=== PATIENT | female | born 1950 | race Caucasian/White ===

== ENCOUNTER 2016-03-27 16:33 | Emergency (ER) | payer MEDICARE, OTHER ==
[~2016-03-27] VITALS: Ht 162.6 cm; Wt 60.8 kg
[~2016-03-27 16:33] MED LIST: ASPI-498 OR; BACL10TA PO; CLON2TAB PO; HYDR200T OR; LOSA25TA8; METH2.5T3 PO; SERT-274 PO; SIMV5TAB50; [UNRECOGNIZED DRUG - CODE]
[2016-03-27 18:38] VITALS: BP 126/63
== END 2016-03-27 19:50 | disposition left against medical advice (07) ==
LOC: EDUNIT# 16:33 → ER 16:36
DX: T38.3X1A Poisoning by insulin and oral hypoglycemic [antidiabetic] drugs, accidental (unintentional), initial encounter (principal); J45.909 Unspecified asthma, uncomplicated; I10 Essential (primary) hypertension; Z79.4 Long term (current) use of insulin; Z79.899 Other long term (current) drug therapy; Y92.89 Other specified places as the place of occurrence of the external cause; Z88.8 Allergy status to other drugs, medicaments and biological substances; Z88.0 Allergy status to penicillin
CPT/HCPCS: 82962

== ENCOUNTER 2017-07-03 12:31 | Inpatient (IN) | payer OTHER ==
[~2017-07-03] VITALS: Ht 154.9 cm; Wt 72.0 kg
[2017-07-03] MEDS ORDERED: SODIUM CHLORIDE 0.9% 1,000 ML IV ONE (12:44)
[2017-07-03 14:01] LABS: Basophils # (auto) 0 uL; Basophils % (auto) 0.4 % (0.0-2.0); Eosinophils # (auto) 0 uL; Lymphocytes # (auto) 0.2 uL; Lymphocytes % (auto) 2.4 % (10.0-50.0)
[2017-07-03 14:03] LABS: Hematocrit 37.1 % (36.0-46.0); Hemoglobin 11.6 g/dL (12.2-16.2); Mean Corpuscular Hemoglobin 31.9 pg (28.0-32.0); Mean Corpuscular Hgb Conc. 31.2 g/dL (32.0-36.0); Mean Corpuscular Volume 102.1 fL (80.0-100.0); Monocytes # (auto) 0.4 uL; Monocytes % (auto) 3.7 % (0.0-12.0); Neutrophils # (auto) 9.4 uL; Neutrophils % (auto) 93.5 % (37.0-80.0); Platelet Count (auto) 169 10^3/uL (140-450); Red Blood Cells 3.63 10^6/uL (4.0-5.20); Red Cell Distribution Width 16.8 % (11.8-14.3)
[2017-07-03 14:11] LABS: Albumin 3.5 g/dL (3.4-5.0); Anion Gap 19 (5-15); Calcium 8.7 mg/dL (8.5-10.1); Carbon Dioxide 13 mmol/L (21-32); Chloride 102 mmol/L (98-107); INR 0.96 (0.9-1.15); Magnesium 2.3 mg/dL (1.6-2.6); Partial Thromboplastin Time 24.7 sec (23.78-33.04); Potassium 5.4 mmol/L (3.5-5.1); Prothrombin Time 10.3 sec (9.27-12.13); Sodium 134 mmol/L (136-145)
[2017-07-03 14:13] LABS: Alanine Aminotransferase 20 U/L (13-56); Aspartate Aminotransferase 18 U/L (15-37); BUN/Creatinine Ratio 28.3; Blood Urea Nitrogen 41 mg/dL (7-18); GFR African American 46 mL/min; GFR Non-African American 38 mL/min
[2017-07-03 14:23] LABS: Alkaline Phosphatase 93 U/L (45-117); Bilirubin, Total 1.4 mg/dL (0.2-1.0); Total Protein 6.7 g/dL (6.4-8.2)
[2017-07-03 14:32] LABS: Glucose 484 mg/dL (74-106)
[2017-07-03] MEDS: SODIUM CHLORIDE 0.9% 1,000 ML IV SCH ×2 (15:05→17:30)
[2017-07-03] MEDS ORDERED: SODIUM CHLORIDE 0.9% 1,000 ML IV SCH ×3 (15:05→21:05)
[2017-07-03] MEDS ORDERED: InsuLIN R (HUMAN) 100 UNITS in SODIUM CHL 0.9% 99 ML IV SCH (15:05)
[2017-07-03] MEDS ORDERED: PANTOPRAZOLE 40 MG/10 ML VIAL IV ONE (15:15)
[2017-07-03] MEDS ORDERED: ACETAMINOPHEN 500 MG TAB PO PRN (15:15)
[2017-07-03] MEDS ORDERED: LORazepam 0.5 MG TAB PO PRN (15:15)
[2017-07-03] MEDS ORDERED: NITROGLYCERIN 0.4 MG SL TAB SL PRN (15:15)
[2017-07-03] MEDS ORDERED: InsuLIN REG 1unit/0.01ml Soln (100units/ml) IV ONE (15:15)
[2017-07-03] MEDS ORDERED: PROMETHAZINE HCL 25 MG/ML 1ML IV PRN (15:15)
[2017-07-03] MEDS ORDERED: LACTULOSE 20Gm/30ML SOLN PO PRN (15:15)
[2017-07-03] MEDS ORDERED: HYDROcodone-ACET 5/325MG TAB PO PRN (15:15)
[2017-07-03] MEDS ORDERED: TEMAZEPAM 15 MG CAP PO PRN (15:15)
[2017-07-03] MEDS ORDERED: MORPHINE SULFATE 8mg/ml INJ SDV IV PRN ×2 (15:15)
[2017-07-03] MEDS ORDERED: DEXTROSE (50%) 50ML SYRG IV PRN ×2 (15:15→23:15)
[2017-07-03] MEDS ORDERED: cefTRIAXone 1GM/10ml IVPUSH 10 ML IV ONE (15:15)
[2017-07-03] MEDS: ACCU-CHEK COMFORT CURVE STRIP VI SCH ×5 (16:12→22:18)
[2017-07-03 16:17] LABS: CRP High Sensitivity 0.3 mg/dL (< 0.3)
[2017-07-03 18:43] LABS: Hematocrit 30.7 % (36.0-46.0); Hemoglobin 10.3 g/dL (12.2-16.2)
[2017-07-03] MEDS: metroNIDAZOLE 500MG/100ML 100 ML IV SCH (18:46)
[2017-07-03] MEDS ORDERED: ALBUMIN 5% 250 ML IV ONE (21:00)
[2017-07-03 22:44] LABS: Albumin 3.2 g/dL (3.4-5.0); BUN/Creatinine Ratio 25.9; Bilirubin, Total 1.1 mg/dL (0.2-1.0); Calcium 7.7 mg/dL (8.5-10.1); Potassium 4.2 mmol/L (3.5-5.1); Total Protein 5.8 g/dL (6.4-8.2)
[2017-07-03] MEDS ORDERED: SODIUM CHLORIDE 0.9% 500 ML IV ONE (23:15)
[2017-07-04] MEDS: InsuLIN REG 1unit/0.01ml Soln (100units/ml) SC SCH ×7 (00:08→20:26)
[2017-07-04] MEDS: ACCU-CHEK COMFORT CURVE STRIP VI SCH ×8 (00:08→23:56)
[2017-07-04] MEDS: metroNIDAZOLE 500MG/100ML 100 ML IV SCH ×5 (00:08→23:56)
[2017-07-04 01:07] LABS: Urine Bacteria NONE SEEN /hpf (None Seen); Urine Blood Negative /uL (Negative); Urine Hyaline Cast FEW /lpf (0 - 2); Urine Specific Gravity 1.015 (1.001-1.035); Urine WBC 5 /hpf (0 - 5)
[2017-07-04 01:18] LABS: Alcohol, Urine < 3.0 mg/dL (0-5); Amphetamine Screen, Urine NEGATIVE (NEGATIVE); Barbiturate Scree,Urine NEGATIVE (NEGATIVE); Benzodiazephine Screen, Urine NEGATIVE (NEGATIVE); Cannabinoid Screen, Urine NEGATIVE (NEGATIVE); Cocaine Screen, Urine NEGATIVE (NEGATIVE); Opiate Scree,Urine NEGATIVE (NEGATIVE); Phencyclidine Screen, Urine NEGATIVE (NEGATIVE)
[2017-07-04 01:27] LABS: Hematocrit 30.3 % (36.0-46.0)
[2017-07-04] MEDS ORDERED: DEXTROSE (50%) 50ML SYRG IV PRN ×2 (02:15→12:45)
[2017-07-04 04:59] VITALS: BP 96/52
[2017-07-04 05:00] VITALS: BP 96/52
[2017-07-04 06:55] LABS: Basophils # (auto) 0.1 uL; Basophils % (auto) 0.9 % (0.0-2.0); Eosinophils # (auto) 0 uL; Eosinophils % (auto) 0.2 % (0.0-7.0); Hematocrit 31.1 % (36.0-46.0); Hemoglobin 10.3 g/dL (12.2-16.2); Lymphocytes # (auto) 1.2 uL; Lymphocytes % (auto) 10.9 % (10.0-50.0); Mean Corpuscular Hemoglobin 32.1 pg (28.0-32.0); Mean Corpuscular Hgb Conc. 33.1 g/dL (32.0-36.0); Mean Corpuscular Volume 96.9 fL (80.0-100.0); Monocytes % (auto) 9.4 % (0.0-12.0); Neutrophils # (auto) 8.4 uL; Neutrophils % (auto) 78.6 % (37.0-80.0); Platelet Count (auto) 161 10^3/uL (140-450); Red Blood Cells 3.21 10^6/uL (4.0-5.20); Red Cell Distribution Width 15.7 % (11.8-14.3); White Blood Cell 10.6 10^3/uL (4.4-10.8)
[2017-07-04 07:17] LABS: BUN/Creatinine Ratio 28.4; Bilirubin, Total 1.1 mg/dL (0.2-1.0); Calcium 8.3 mg/dL (8.5-10.1); Potassium 4.7 mmol/L (3.5-5.1); Total Protein 5.8 g/dL (6.4-8.2)
[2017-07-04 09:00] VITALS: BP 99/51
[2017-07-04] MEDS ORDERED: cefTRIAXone 1GM/10ml IVPUSH 10 ML IV SCH (09:00)
[2017-07-04] MEDS: PANTOPRAZOLE 40 MG/10 ML VIAL IV SCH (10:12)
[2017-07-04] MEDS ORDERED: LEVOFLOXACIN 500MG 100 ML IV ONE (12:30)
[2017-07-04 12:38] VITALS: BP 104/95
[2017-07-04] MEDS: SODIUM CHLORIDE 0.9% 1,000 ML IV SCH ×2 (13:09→20:45)
[2017-07-04] MEDS ORDERED: guaiFENesin 200 MG/10 ML UD PO PRN (15:00)
[2017-07-04 17:00] VITALS: BP 100/49
[2017-07-04] MEDS ORDERED: ALBUTEROL SULF 2.5 MG/0.5ML(0.5%) NEB SOLN NEB PRN (20:00)
[2017-07-04] MEDS ORDERED: SODIUM CHLORIDE 0.9% 500 ML IV ONE (22:45)
[2017-07-04 23:57] VITALS: BP 111/53
[2017-07-05] MEDS: InsuLIN REG 1unit/0.01ml Soln (100units/ml) SC SCH ×4 (00:34→12:23)
[2017-07-05] MEDS: ALBUTEROL SULF 2.5 MG/0.5ML(0.5%) NEB SOLN NEB SCH ×3 (00:57→12:00)
[2017-07-05] MEDS: ACCU-CHEK COMFORT CURVE STRIP VI SCH ×3 (04:07→12:22)
[2017-07-05] MEDS: metroNIDAZOLE 500MG/100ML 100 ML IV SCH ×2 (05:30→11:52)
[2017-07-05] MEDS: SODIUM CHLORIDE 0.9% 1,000 ML IV SCH ×2 (05:31→13:36)
[2017-07-05 06:00] VITALS: BP 90/47
[2017-07-05 06:16] LABS: Basophils # (auto) 0.1 uL; Basophils % (auto) 0.9 % (0.0-2.0); Eosinophils # (auto) 0.1 uL; Eosinophils % (auto) 1.7 % (0.0-7.0); Hematocrit 30.6 % (36.0-46.0); Hemoglobin 10.3 g/dL (12.2-16.2); Lymphocytes # (auto) 1.5 uL; Lymphocytes % (auto) 23.3 % (10.0-50.0); Mean Corpuscular Hemoglobin 32.5 pg (28.0-32.0); Mean Corpuscular Hgb Conc. 33.8 g/dL (32.0-36.0); Mean Corpuscular Volume 96.3 fL (80.0-100.0); Monocytes # (auto) 0.6 uL; Monocytes % (auto) 8.5 % (0.0-12.0); Neutrophils # (auto) 4.3 uL; Neutrophils % (auto) 65.6 % (37.0-80.0); Platelet Count (auto) 134 10^3/uL (140-450); Red Blood Cells 3.18 10^6/uL (4.0-5.20); Red Cell Distribution Width 15.3 % (11.8-14.3); White Blood Cell 6.6 10^3/uL (4.4-10.8)
[2017-07-05 06:31] LABS: Calcium 7.9 mg/dL (8.5-10.1); Potassium 4.1 mmol/L (3.5-5.1)
[2017-07-05 06:34] LABS: Albumin 2.9 g/dL (3.4-5.0); BUN/Creatinine Ratio 29.5
[2017-07-05 06:36] LABS: Total Protein 5.7 g/dL (6.4-8.2)
[2017-07-05 08:54] VITALS: BP 113/54
[2017-07-05 09:43] VITALS: BP 113/54
[2017-07-05] MEDS ORDERED: LEVOFLOXACIN 500MG 100 ML IV SCH (10:00)
[2017-07-05] MEDS: PANTOPRAZOLE 40 MG/10 ML VIAL IV SCH (11:26)
[2017-07-05 13:00] VITALS: BP 128/61
[2017-07-05 14:21] VITALS: BP 128/61
== END 2017-07-05 15:50 | disposition home or self-care (01) | DRG 637 ==
LOC: EDBD 12:31 → ER 12:31 → OVERFLOW 12:32 → TELE-EAST 07-04 03:40
PROVIDERS: ADMIT Internal Medicine; ATTEND Family Medicine
DX: E11.10 Type 2 diabetes mellitus with ketoacidosis without coma (principal); N17.0 Acute kidney failure with tubular necrosis; E87.1 Hypo-osmolality and hyponatremia; N39.0 Urinary tract infection, site not specified; E87.5 Hyperkalemia; E78.5 Hyperlipidemia, unspecified; E86.0 Dehydration; E87.6 Hypokalemia; M19.90 Unspecified osteoarthritis, unspecified site; Z96.41 Presence of insulin pump (external) (internal); I10 Essential (primary) hypertension; G47.00 Insomnia, unspecified; J45.909 Unspecified asthma, uncomplicated; R07.89 Other chest pain; K59.00 Constipation, unspecified; F41.9 Anxiety disorder, unspecified; E78.00 Pure hypercholesterolemia, unspecified; Z79.4 Long term (current) use of insulin; Z82.49 Family history of ischemic heart disease and other diseases of the circulatory system; Z83.3 Family history of diabetes mellitus; Z88.0 Allergy status to penicillin; Z88.2 Allergy status to sulfonamides; Z88.8 Allergy status to other drugs, medicaments and biological substances; Z79.82 Long term (current) use of aspirin; Z79.899 Other long term (current) drug therapy; Z90.89 Acquired absence of other organs; Z98.51 Tubal ligation status; Z81.1 Family history of alcohol abuse and dependence
CPT/HCPCS: 36415; 71045; 80053; 80061; 80307; 81001; 82010; 82150; 82550; 82962; 83036; 83605; 83690; 83735; 84484; 85014; 85018; 85025; 85045; 85379; 85610; 85652; 85730; 86141; 87040; 87086; 93005; 93306; 94640; 94761; 96374; 96375; C9113; G0378; J1815; J1956; J3490

== ENCOUNTER 2018-05-06 18:37 | Inpatient (IN) | payer OTHER | END 2018-05-15 22:15 | disposition home or self-care (01) | LOC: OVERFLOW 23:26 → DOU IN ICU 05-09 15:40 → TELE-EAST 05-11 17:05 → DOU IN ICU 05-09 16:00 → WEST WING 05-07 14:33 → ER 18:37 | DX: N17.0 Acute kidney failure with tubular necrosis (principal); J96.00 Acute respiratory failure, unspecified whether with hypoxia or hypercapnia; J18.9 Pneumonia, unspecified organism; J45.901 Unspecified asthma with (acute) exacerbation; I12.9 Hypertensive chronic kidney disease with stage 1 through stage 4 chronic kidney disease, or unspecified chronic kidney disease; E11.65 Type 2 diabetes mellitus with hyperglycemia; N18.9 Chronic kidney disease, unspecified; E11.22 Type 2 diabetes mellitus with diabetic chronic kidney disease; E11.21 Type 2 diabetes mellitus with diabetic nephropathy; E78.5 Hyperlipidemia, unspecified; E86.0 Dehydration; E87.5 Hyperkalemia; J20.9 Acute bronchitis, unspecified ==

== ENCOUNTER 2019-11-30 18:31 | Emergency (ER) | payer OTHER ==
[~2019-11-30] VITALS: Ht 172.7 cm; Wt 59.0 kg
[~2019-11-30 18:31] MED LIST changes: +ALBUAER3 IN; +ASCO500T11 GT; -ASPI-498 OR; +CHOL20007 OR; -CLON2TAB PO; +FOLI1TAB6 PO; +FURO1TAB33 PO; +HYDR-4833 PO; -HYDR200T OR; +LISI-275 PO; -LOSA25TA8; +METH2.5T PO; -METH2.5T3 PO; +METO25TA93 PO; +ONDA-144 PO; +ROSU10TA16 PO; -SERT-274 PO; +TRAZ100T3 PO; -[UNRECOGNIZED DRUG - CODE]
[2019-11-30 20:29] LABS: Basophils # (auto) 0 10 ^3/uL (0-0.2); Eosinophils # (auto) 0.1 10 ^3/uL (0-0.8); Hematocrit 37.3 % (36.0-46.0); Hemoglobin 12.5 g/dL (12.2-16.2); Lymphocytes # (auto) 1.4 10 ^3/uL (0.4-5.4); Lymphocytes % (auto) 33.2 % (10.0-50.0); Mean Corpuscular Hemoglobin 31.6 pg (28.0-32.0); Mean Corpuscular Hgb Conc. 33.5 g/dL (32.0-36.0); Mean Corpuscular Volume 94.2 fL (80.0-100.0); Monocytes # (auto) 0.3 10 ^3/uL (0-1.3); Monocytes % (auto) 6.3 % (0.0-12.0); Neutrophils # (auto) 2.4 10 ^3/uL (1.6-8.6); Neutrophils % (auto) 56.5 % (37.0-80.0); Nucleated Red Blood Cells % 0.2 %; Platelet Count (auto) 146 10^3/uL (140-450); Red Blood Cells 3.96 10^6/uL (4.0-5.20); Red Cell Distribution Width 14.2 % (11.8-14.3); White Blood Cell 4.3 10^3/uL (4.4-10.8)
[2019-11-30 20:47] LABS: Albumin 3.7 g/dL (3.4-5.0); BUN/Creatinine Ratio 23.2; Calcium 9.1 mg/dL (8.5-10.1); Magnesium 2.3 mg/dL (1.6-2.6); Potassium 4.2 mmol/L (3.5-5.1)
[2019-11-30 20:49] LABS: Acetaminophen < 2.0 ug/mL (10-30); Salicylate < 1.7 mg/dL (2.8-20.0)
[2019-11-30 20:50] LABS: Bilirubin, Total 1.3 mg/dL (0.2-1.0); Total Protein 6.7 g/dL (6.4-8.2)
[2019-11-30 22:29] LABS: Urine Bacteria FEW /hpf (None Seen); Urine Blood Negative /uL (Negative); Urine Specific Gravity 1.007 (1.001-1.035); Urine WBC 14 /hpf (0 - 5)
[2019-11-30 22:41] LABS: Amphetamine Screen, Urine NEGATIVE (NEGATIVE); Barbiturate Scree,Urine NEGATIVE (NEGATIVE); Benzodiazephine Screen, Urine NEGATIVE (NEGATIVE); Cannabinoid Screen, Urine NEGATIVE (NEGATIVE); Cocaine Screen, Urine NEGATIVE (NEGATIVE); Opiate Scree,Urine NEGATIVE (NEGATIVE); Phencyclidine Screen, Urine NEGATIVE (NEGATIVE)
[2019-12-01] MEDS ORDERED: ONDANSETRON ODT 4 MG TAB PO ONE (03:45)
[2019-12-01] MEDS ORDERED: levoFLOXacin 500 MG TAB PO ONE (07:00)
[2019-12-01] MEDS ORDERED: HYDROcodone-ACET 5/325MG TAB PO ONE (19:00)
[2019-12-02 06:48] VITALS: BP 107/43
== END 2019-12-02 05:40 | disposition short-term general hospital (02) ==
LOC: ER 18:31 → EDBD 18:31 → ER 12-02 05:40
DX: F20.9 Schizophrenia, unspecified (principal); R45.851 Suicidal ideations; E11.9 Type 2 diabetes mellitus without complications; J45.909 Unspecified asthma, uncomplicated; Z90.89 Acquired absence of other organs; Z98.51 Tubal ligation status; Z88.0 Allergy status to penicillin; Z88.1 Allergy status to other antibiotic agents; Z88.2 Allergy status to sulfonamides; Z88.8 Allergy status to other drugs, medicaments and biological substances; Z79.899 Other long term (current) drug therapy; Z20.828 Contact with and (suspected) exposure to other viral communicable diseases
CPT/HCPCS: 36415; 80053; 80307; 80320; 80329; 81001; 82962; 83735; 85025; 87426; 93005; 99285; Q0162

== ENCOUNTER 2021-08-30 13:09 | Inpatient (IN) | payer OTHER ==
[~2021-08-30] VITALS: Ht 160 cm; Wt 83.5 kg
[2021-08-30] MEDS ORDERED: ONDANSETRON HCL 4 MG/2 ML VIAL IV ONE (13:30)
[2021-08-30] MEDS ORDERED: HYDROmorphone HCL 2 MG/ML VL/or syr IV ONE (13:30)
[2021-08-30 14:06] LABS: Basophils # (auto) 0 10 ^3/uL (0-0.2); Basophils % (auto) 0.8 % (0.0-2.0); Eosinophils # (auto) 0 10 ^3/uL (0-0.8); Eosinophils % (auto) 0.6 % (0.0-7.0); Hematocrit 35.9 % (36.0-46.0); Lymphocytes # (auto) 0.8 10 ^3/uL (0.4-5.4); Lymphocytes % (auto) 12.3 % (10.0-50.0); Mean Corpuscular Hemoglobin 30.5 pg (28.0-32.0); Mean Corpuscular Hgb Conc. 33.3 g/dL (32.0-36.0); Mean Corpuscular Volume 91.5 fL (80.0-100.0); Monocytes # (auto) 0.5 10 ^3/uL (0-1.3); Monocytes % (auto) 7.9 % (0.0-12.0); Neutrophils # (auto) 4.9 10 ^3/uL (1.6-8.6); Neutrophils % (auto) 78.4 % (37.0-80.0); Nucleated Red Blood Cells % 0.1 %; Red Blood Cells 3.92 10^6/uL (4.0-5.20); Red Cell Distribution Width 15.4 % (11.8-14.3); White Blood Cell 6.3 10^3/uL (4.4-10.8)
[2021-08-30 14:21] LABS: INR 1.02 (0.9-1.15); Partial Thromboplastin Time 26.5 sec (24.6-33.4)
[2021-08-30 14:36] LABS: Albumin 3.2 g/dL (3.4-5.0); Calcium 8.6 mg/dL (8.5-10.1); Potassium 4.3 mmol/L (3.5-5.1)
[2021-08-30 14:41] LABS: BUN/Creatinine Ratio 18.6; Bilirubin, Total 0.8 mg/dL (0.2-1.0)
[2021-08-30] MEDS: HYDROmorphone HCL 2 MG/ML VL/or syr IV PRN (23:25)
[2021-08-31] MEDS: HYDROmorphone HCL 2 MG/ML VL/or syr IV PRN (08:26)
[2021-08-31] MEDS ORDERED: DEXTROSE (50%) 50ML SYRG IV PRN (08:45)
[2021-08-31] MEDS: ENOXAPARIN SOD 40 MG/0.4 ML SYRINGE SC SCH (10:05)
[2021-08-31 10:24] LABS: Basophils # (auto) 0 10 ^3/uL (0-0.2); Basophils % (auto) 0.7 % (0.0-2.0); Eosinophils # (auto) 0.1 10 ^3/uL (0-0.8); Eosinophils % (auto) 0.9 % (0.0-7.0); Hematocrit 35.7 % (36.0-46.0); Hemoglobin 11.6 g/dL (12.2-16.2); Lymphocytes # (auto) 0.8 10 ^3/uL (0.4-5.4); Lymphocytes % (auto) 12.2 % (10.0-50.0); Mean Corpuscular Hgb Conc. 32.6 g/dL (32.0-36.0); Mean Corpuscular Volume 92.2 fL (80.0-100.0); Monocytes # (auto) 0.5 10 ^3/uL (0-1.3); Monocytes % (auto) 8.7 % (0.0-12.0); Neutrophils # (auto) 4.8 10 ^3/uL (1.6-8.6); Neutrophils % (auto) 77.5 % (37.0-80.0); Red Blood Cells 3.87 10^6/uL (4.0-5.20); White Blood Cell 6.2 10^3/uL (4.4-10.8)
[2021-08-31] MEDS: SODIUM CHLORIDE 0.9% 1,000 ML IV SCH ×2 (10:30→11:30)
[2021-08-31 10:42] LABS: Calcium 8.7 mg/dL (8.5-10.1); Potassium 4.7 mmol/L (3.5-5.1)
[2021-08-31 10:46] LABS: BUN/Creatinine Ratio 17.8
[2021-08-31] MEDS: InsuLIN REG 1unit/0.01ml Soln (100units/ml) SC SCH ×3 (11:47→22:00)
[2021-08-31] MEDS: ACCU-CHEK COMFORT CURVE STRIP VI SCH ×3 (11:47→22:00)
[2021-08-31] MEDS: MORPHINE SULFATE INJ 2 MG/ml SYRG IV PRN ×2 (13:06→19:05)
[2021-08-31] MEDS ORDERED: DOXYCYCLINE 100 MG TAB/CAP PO ONE (14:15)
[2021-08-31] MEDS ORDERED: FUROSEMIDE 20 MG/2 ML VIAL IV ONE (14:15)
[2021-08-31 16:20] VITALS: BP 124/66
[2021-08-31 17:00] VITALS: BP 124/66
[2021-08-31] MEDS: DOXYCYCLINE 100 MG TAB/CAP PO SCH (21:25)
[2021-08-31 22:14] VITALS: BP 136/61
[2021-09-01] MEDS: MORPHINE SULFATE INJ 2 MG/ml SYRG IV PRN ×5 (03:44→21:45)
[2021-09-01 04:40] VITALS: BP 132/59
[2021-09-01] MEDS: InsuLIN REG 1unit/0.01ml Soln (100units/ml) SC SCH ×4 (06:05→21:47)
[2021-09-01] MEDS: ACCU-CHEK COMFORT CURVE STRIP VI SCH ×4 (06:05→21:46)
[2021-09-01] MEDS: FUROSEMIDE 20 MG/2 ML VIAL IV SCH (08:57)
[2021-09-01] MEDS: ENOXAPARIN SOD 40 MG/0.4 ML SYRINGE SC SCH (08:58)
[2021-09-01] MEDS: DOXYCYCLINE 100 MG TAB/CAP PO SCH ×2 (08:58→21:46)
[2021-09-01 09:00] VITALS: BP 139/69
[2021-09-01 13:00] VITALS: BP 118/65
[2021-09-01 17:00] VITALS: BP 125/67
[2021-09-01 22:05] VITALS: BP 137/57
[2021-09-02] MEDS: MORPHINE SULFATE INJ 2 MG/ml SYRG IV PRN ×5 (01:57→22:30)
[2021-09-02 05:01] VITALS: BP 130/57
[2021-09-02] MEDS: ACCU-CHEK COMFORT CURVE STRIP VI SCH ×4 (06:11→22:13)
[2021-09-02] MEDS: InsuLIN REG 1unit/0.01ml Soln (100units/ml) SC SCH ×4 (06:14→22:00)
[2021-09-02 08:00] VITALS: BP 140/61
[2021-09-02] MEDS: DOXYCYCLINE 100 MG TAB/CAP PO SCH ×2 (09:01→22:13)
[2021-09-02] MEDS: FUROSEMIDE 20 MG/2 ML VIAL IV SCH (09:01)
[2021-09-02] MEDS: ENOXAPARIN SOD 40 MG/0.4 ML SYRINGE SC SCH (09:02)
[2021-09-02 12:00] VITALS: BP 113/61
[2021-09-02 16:00] VITALS: BP 126/47
[2021-09-02 22:00] VITALS: BP 140/82
[2021-09-03] MEDS: MORPHINE SULFATE INJ 2 MG/ml SYRG IV PRN ×5 (03:13→22:06)
[2021-09-03 04:34] LABS: Basophils # (auto) 0 10 ^3/uL (0-0.2); Basophils % (auto) 0.5 % (0.0-2.0); Eosinophils # (auto) 0.2 10 ^3/uL (0-0.8); Hematocrit 32.4 % (36.0-46.0); Lymphocytes # (auto) 0.8 10 ^3/uL (0.4-5.4); Lymphocytes % (auto) 16.7 % (10.0-50.0); Mean Corpuscular Hemoglobin 31.1 pg (28.0-32.0); Mean Corpuscular Hgb Conc. 34.1 g/dL (32.0-36.0); Mean Corpuscular Volume 91.2 fL (80.0-100.0); Monocytes # (auto) 0.5 10 ^3/uL (0-1.3); Monocytes % (auto) 10.3 % (0.0-12.0); Neutrophils # (auto) 3.5 10 ^3/uL (1.6-8.6); Neutrophils % (auto) 68.5 % (37.0-80.0); Red Blood Cells 3.55 10^6/uL (4.0-5.20); Red Cell Distribution Width 14.5 % (11.8-14.3); White Blood Cell 5.1 10^3/uL (4.4-10.8)
[2021-09-03 05:00] VITALS: BP 130/60
[2021-09-03] MEDS: InsuLIN REG 1unit/0.01ml Soln (100units/ml) SC SCH ×4 (06:34→22:32)
[2021-09-03] MEDS: ACCU-CHEK COMFORT CURVE STRIP VI SCH ×4 (06:34→22:27)
[2021-09-03 08:00] VITALS: BP 121/54
[2021-09-03 09:00] VITALS: BP 121/54
[2021-09-03] MEDS: DOXYCYCLINE 100 MG TAB/CAP PO SCH ×2 (10:03→22:06)
[2021-09-03] MEDS: ENOXAPARIN SOD 40 MG/0.4 ML SYRINGE SC SCH (10:04)
[2021-09-03 13:00] VITALS: BP 125/57
[2021-09-03 16:37] VITALS: BP 145/61
[2021-09-03 22:00] VITALS: BP 129/65
[2021-09-04] MEDS: MORPHINE SULFATE INJ 2 MG/ml SYRG IV PRN ×4 (02:10→15:16)
[2021-09-04 05:00] VITALS: BP 110/65
[2021-09-04] MEDS: ACCU-CHEK COMFORT CURVE STRIP VI SCH ×3 (06:47→17:39)
[2021-09-04] MEDS: InsuLIN REG 1unit/0.01ml Soln (100units/ml) SC SCH ×3 (06:58→17:38)
[2021-09-04 08:20] VITALS: BP 132/58
[2021-09-04 09:00] VITALS: BP 132/58
[2021-09-04] MEDS: DOXYCYCLINE 100 MG TAB/CAP PO SCH (09:30)
[2021-09-04] MEDS: ENOXAPARIN SOD 40 MG/0.4 ML SYRINGE SC SCH (09:30)
[2021-09-04 13:00] VITALS: BP 130/59
[2021-09-04] MEDS ORDERED: DOCUSATE SOD 100 MG CAP PO ONE (14:30)
[2021-09-04] MEDS ORDERED: NITROFURANTOIN 100 mg CAP PO ONE (14:30)
[2021-09-04 16:49] VITALS: BP 120/68
[2021-09-04] MEDS ORDERED: NITROFURANTOIN 100 mg CAP PO SCH (22:00)
[2021-09-04] MEDS ORDERED: DOCUSATE SOD 100 MG CAP PO SCH (22:00)
[2021-09-05] MEDS ORDERED: LISINOPRIL 5 MG TAB PO SCH (10:00)
== END 2021-09-04 18:05 | DRG 563 ==
LOC: EDBD 13:09 → ER 13:09 → OVERFLOW 08-31 08:42 → WEST WING 08-31 15:35
PROVIDERS: ADMIT Registered Nurse; ATTEND Internal Medicine
DX: S82.042A Displaced comminuted fracture of left patella, initial encounter for closed fracture (principal); N39.0 Urinary tract infection, site not specified; M16.12 Unilateral primary osteoarthritis, left hip; E66.01 Morbid (severe) obesity due to excess calories; N18.2 Chronic kidney disease, stage 2 (mild); E10.22 Type 1 diabetes mellitus with diabetic chronic kidney disease; Z20.822 Contact with and (suspected) exposure to COVID-19; W18.39XA Other fall on same level, initial encounter; I12.9 Hypertensive chronic kidney disease with stage 1 through stage 4 chronic kidney disease, or unspecified chronic kidney disease; J45.909 Unspecified asthma, uncomplicated; B95.2 Enterococcus as the cause of diseases classified elsewhere; S80.222A Blister (nonthermal), left knee, initial encounter; E78.5 Hyperlipidemia, unspecified; F20.9 Schizophrenia, unspecified; Z88.0 Allergy status to penicillin; Z88.8 Allergy status to other drugs, medicaments and biological substances; Y93.89 Activity, other specified; Y92.89 Other specified places as the place of occurrence of the external cause; Y99.8 Other external cause status; Z68.32 Body mass index [BMI] 32.0-32.9, adult
CPT/HCPCS: 36415; 71045; 73502; 73560; 73700; 80048; 80053; 80061; 82962; 83036; 83880; 85025; 85610; 85730; 87086; 87088; 87186; 93971; 96374; 96375; 96376; 97110; 97163; 97530; G0378; J1815; J2405

== ENCOUNTER 2022-05-15 02:14 | Inpatient (IN) | payer OTHER ==
[~2022-05-15] VITALS: Ht 157.5 cm; Wt 85.6 kg
[~2022-05-15 02:14] MED LIST changes: -ASCO500T11 GT; -BACL10TA PO; -FOLI1TAB6 PO; -TRAZ100T3 PO
[2022-05-15] MEDS ORDERED: ALBUTEROL SULF 2.5 MG/0.5ML(0.5%) NEB SOLN NEB ONE (02:30)
[2022-05-15] MEDS ORDERED: IPRATROPIUM BROM 0.5 MG/2.5ML INH SOL NEB ONE (02:30)
[2022-05-15] MEDS ORDERED: TERBUTALINE SULFATE 1 MG/ML 1ML VIAL SC ONE ×2 (02:30→03:24)
[2022-05-15] MEDS ORDERED: methylPREDNISolone SOD SUCC 125 MG/2 ML VL IV ONE (02:30)
[2022-05-15 03:24] LABS: Basophils # (auto) 0 10 ^3/uL (0-0.2); Basophils % (auto) 0.4 % (0.0-2.0); Eosinophils # (auto) 0.2 10 ^3/uL (0-0.8); Eosinophils % (auto) 1.7 % (0.0-7.0); Hematocrit 34.6 % (36.0-46.0); Hemoglobin 11.9 g/dL (12.2-16.2); Lymphocytes # (auto) 0.8 10 ^3/uL (0.4-5.4); Lymphocytes % (auto) 7.9 % (10.0-50.0); Mean Corpuscular Hemoglobin 30.3 pg (28.0-32.0); Mean Corpuscular Hgb Conc. 34.4 g/dL (32.0-36.0); Monocytes # (auto) 0.6 10 ^3/uL (0-1.3); Monocytes % (auto) 5.6 % (0.0-12.0); Neutrophils # (auto) 8.9 10 ^3/uL (1.6-8.6); Neutrophils % (auto) 84.4 % (37.0-80.0); Nucleated Red Blood Cells % 0.1 %; Red Blood Cells 3.93 10^6/uL (4.0-5.20); Red Cell Distribution Width 14.5 % (11.8-14.3); White Blood Cell 10.5 10^3/uL (4.4-10.8)
[2022-05-15 03:28] LABS: INR 0.98 (0.9-1.15); Partial Thromboplastin Time 28.6 sec (24.6-33.4)
[2022-05-15] MEDS: MAGNESIUM SULFATE 1GM/100ML 100 ML IV SCH ×2 (03:30→08:35)
[2022-05-15 03:32] LABS: Albumin 3.5 g/dL (3.4-5.0); BUN/Creatinine Ratio 23.3 (10.0-20.0); Calcium 8.4 mg/dL (8.5-10.1); Magnesium 2.2 mg/dL (1.6-2.6); Potassium 4.4 mmol/L (3.5-5.1)
[2022-05-15 03:35] LABS: Bilirubin, Total 0.6 mg/dL (0.2-1.0); Total Protein 7.2 g/dL (6.4-8.2)
[2022-05-15] MEDS ORDERED: AZITHROMYCIN 500MG/ 250ML 250 ML IV ONE (04:45)
[2022-05-15] MEDS: SODIUM CHLORIDE 0.9% 1,000 ML IV SCH ×2 (08:45→23:27)
[2022-05-15] MEDS ORDERED: DOCUSATE SOD 100 MG CAP PO PRN (08:45)
[2022-05-15] MEDS ORDERED: ONDANSETRON HCL 4 MG/2 ML VIAL IV PRN (08:45)
[2022-05-15] MEDS ORDERED: DEXTROSE (50%) 50ML SYRG IV PRN (08:45)
[2022-05-15] MEDS ORDERED: MORPHINE SULFATE INJ 2 MG/ml SYRG IV PRN (08:45)
[2022-05-15] MEDS ORDERED: METHOTREXATE 2.5 MG TAB PO SCH (10:00)
[2022-05-15] MEDS ORDERED: levoFLOXacin 500MG 100 ML IV SCH (10:00)
[2022-05-15] MEDS ORDERED: PATIENTS OWN MEDICATION (Rosuvastatin Calcium (Crestor) 1 TAB) PO SCH (10:00)
[2022-05-15] MEDS ORDERED: ENOXAPARIN SOD 40 MG/0.4 ML SYRINGE SC SCH (10:00)
[2022-05-15] MEDS ORDERED: IOHEXOL 350 MG/ML 100ML IJ ONE (10:50)
[2022-05-15] MEDS: ACCU-CHEK COMFORT CURVE STRIP VI SCH ×3 (11:30→22:04)
[2022-05-15] MEDS ORDERED: cefTRIAXone 1GM/50ML D5W 50 ML IV ONE (13:50)
[2022-05-15] MEDS: LISINOPRIL 5 MG TAB PO SCH (16:37)
[2022-05-15] MEDS: FUROSEMIDE 20 MG TAB PO SCH (16:38)
[2022-05-15] MEDS: methylPREDNISolone SOD SUCC 125 MG/2 ML VL IV SCH ×2 (16:52→22:04)
[2022-05-15] MEDS: InsuLIN REG 1unit/0.01ml Soln (100units/ml) SC SCH ×3 (17:00→22:06)
[2022-05-15] MEDS: levoFLOXacin 500MG 100 ML IV SCH (19:34)
[2022-05-15] MEDS: ENOXAPARIN SOD 80 MG/0.8ML SYRINGE SC SCH (22:04)
[2022-05-16] VITALS (7 sets, daily range): BP systolic 113–134; BP diastolic 41–56
[2022-05-16 06:18] LABS: Basophils # (auto) 0 10 ^3/uL (0-0.2); Basophils % (auto) 0.3 % (0.0-2.0); Eosinophils # (auto) 0 10 ^3/uL (0-0.8); Hematocrit 33.6 % (36.0-46.0); Hemoglobin 11.2 g/dL (12.2-16.2); Lymphocytes # (auto) 0.3 10 ^3/uL (0.4-5.4); Lymphocytes % (auto) 2.6 % (10.0-50.0); Mean Corpuscular Hemoglobin 29.9 pg (28.0-32.0); Mean Corpuscular Hgb Conc. 33.3 g/dL (32.0-36.0); Mean Corpuscular Volume 89.9 fL (80.0-100.0); Monocytes # (auto) 0.2 10 ^3/uL (0-1.3); Monocytes % (auto) 1.3 % (0.0-12.0); Neutrophils # (auto) 11.5 10 ^3/uL (1.6-8.6); Neutrophils % (auto) 95.8 % (37.0-80.0); Nucleated Red Blood Cells % 0.1 %; Red Blood Cells 3.74 10^6/uL (4.0-5.20); Red Cell Distribution Width 14.9 % (11.8-14.3)
[2022-05-16] MEDS: methylPREDNISolone SOD SUCC 125 MG/2 ML VL IV SCH ×2 (06:27→13:59)
[2022-05-16 06:36] LABS: Potassium 4.7 mmol/L (3.5-5.1)
[2022-05-16] MEDS: InsuLIN REG 1unit/0.01ml Soln (100units/ml) SC SCH ×4 (06:41→21:10)
[2022-05-16] MEDS: ACCU-CHEK COMFORT CURVE STRIP VI SCH ×4 (06:41→21:08)
[2022-05-16 06:44] LABS: Albumin 3.1 g/dL (3.4-5.0); BUN/Creatinine Ratio 30.9 (10.0-20.0); Bilirubin, Total 0.9 mg/dL (0.2-1.0); Calcium 8.5 mg/dL (8.5-10.1); Total Protein 6.4 g/dL (6.4-8.2)
[2022-05-16] MEDS: METOPROLOL SUCCINATE XL 50 MG TAB PO SCH (10:13)
[2022-05-16] MEDS: FUROSEMIDE 20 MG TAB PO SCH (10:13)
[2022-05-16] MEDS: ENOXAPARIN SOD 80 MG/0.8ML SYRINGE SC SCH (10:14)
[2022-05-16] MEDS: LISINOPRIL 5 MG TAB PO SCH (10:14)
[2022-05-16] MEDS: SODIUM CHLORIDE 0.9% 1,000 ML IV SCH (13:59)
[2022-05-16] MEDS: levoFLOXacin 500MG 100 ML IV SCH (17:36)
[2022-05-16] MEDS: FUROSEMIDE 20 MG/2 ML VIAL IV SCH (17:57)
[2022-05-16] MEDS: IPRATROPIUM BROM 0.5 MG/2.5ML INH SOL NEB PRN ×2 (18:27→23:48)
[2022-05-16] MEDS: ACETYLCYSTEINE 10 %(100MG/ML) SOL 4ML NEB SCH ×2 (18:28→23:49)
[2022-05-16 19:26] LABS: Urine Bacteria NONE SEEN /hpf (None Seen); Urine Blood Negative /uL (Negative); Urine Specific Gravity 1.012 (1.001-1.035); Urine WBC 8 /hpf (0 - 5)
[2022-05-16] MEDS: methylPREDNISolone SOD SUCC 40 MG/ML VL IV SCH (21:12)
[2022-05-17] VITALS (7 sets, daily range): BP systolic 113–132; BP diastolic 48–63
[2022-05-17] MEDS: FUROSEMIDE 20 MG/2 ML VIAL IV SCH ×2 (06:06→17:54)
[2022-05-17] MEDS: methylPREDNISolone SOD SUCC 40 MG/ML VL IV SCH ×3 (06:06→21:46)
[2022-05-17] MEDS: InsuLIN REG 1unit/0.01ml Soln (100units/ml) SC SCH ×4 (06:07→22:00)
[2022-05-17] MEDS: ACCU-CHEK COMFORT CURVE STRIP VI SCH ×4 (06:07→21:46)
[2022-05-17] MEDS: ALBUTEROL SULF 2.5 MG/0.5ML(0.5%) NEB SOLN NEB PRN ×3 (06:23→18:15)
[2022-05-17] MEDS: IPRATROPIUM BROM 0.5 MG/2.5ML INH SOL NEB PRN ×2 (06:23→11:53)
[2022-05-17] MEDS: ACETYLCYSTEINE 10 %(100MG/ML) SOL 4ML NEB SCH ×3 (06:23→18:15)
[2022-05-17 06:30] LABS: Basophils # (auto) 0 10 ^3/uL (0-0.2); Eosinophils # (auto) 0 10 ^3/uL (0-0.8); Hemoglobin 10.9 g/dL (12.2-16.2); Lymphocytes # (auto) 0.4 10 ^3/uL (0.4-5.4); Lymphocytes % (auto) 3.3 % (10.0-50.0); Mean Corpuscular Hemoglobin 30.1 pg (28.0-32.0); Mean Corpuscular Volume 88.7 fL (80.0-100.0); Monocytes # (auto) 0.6 10 ^3/uL (0-1.3); Neutrophils # (auto) 11.5 10 ^3/uL (1.6-8.6); Neutrophils % (auto) 91.7 % (37.0-80.0); Red Blood Cells 3.61 10^6/uL (4.0-5.20); White Blood Cell 12.5 10^3/uL (4.4-10.8)
[2022-05-17 06:39] LABS: Calcium 8.5 mg/dL (8.5-10.1); Potassium 4.5 mmol/L (3.5-5.1)
[2022-05-17] MEDS: METOPROLOL SUCCINATE XL 50 MG TAB PO SCH (09:37)
[2022-05-17] MEDS: LISINOPRIL 5 MG TAB PO SCH (09:38)
[2022-05-17] MEDS: levoFLOXacin 500MG 100 ML IV SCH (17:48)
[2022-05-18] VITALS (7 sets, daily range): BP systolic 110–132; BP diastolic 40–62
[2022-05-18] MEDS: ACETYLCYSTEINE 10 %(100MG/ML) SOL 4ML NEB SCH ×4 (00:14→18:58)
[2022-05-18] MEDS: ALBUTEROL SULF 2.5 MG/0.5ML(0.5%) NEB SOLN NEB PRN ×4 (00:14→18:58)
[2022-05-18] MEDS: IPRATROPIUM BROM 0.5 MG/2.5ML INH SOL NEB PRN ×4 (00:15→18:58)
[2022-05-18 05:25] LABS: Basophils # (auto) 0 10 ^3/uL (0-0.2); Basophils % (auto) 0.1 % (0.0-2.0); Eosinophils # (auto) 0 10 ^3/uL (0-0.8); Hematocrit 33.5 % (36.0-46.0); Hemoglobin 11.6 g/dL (12.2-16.2); Lymphocytes # (auto) 0.5 10 ^3/uL (0.4-5.4); Mean Corpuscular Hemoglobin 30.1 pg (28.0-32.0); Mean Corpuscular Hgb Conc. 34.6 g/dL (32.0-36.0); Monocytes # (auto) 0.6 10 ^3/uL (0-1.3); Monocytes % (auto) 5.6 % (0.0-12.0); Neutrophils # (auto) 8.7 10 ^3/uL (1.6-8.6); Neutrophils % (auto) 89.3 % (37.0-80.0); Nucleated Red Blood Cells % 0.1 %; Red Blood Cells 3.85 10^6/uL (4.0-5.20); Red Cell Distribution Width 14.9 % (11.8-14.3); White Blood Cell 9.8 10^3/uL (4.4-10.8)
[2022-05-18] MEDS: FUROSEMIDE 20 MG/2 ML VIAL IV SCH ×2 (05:25→17:40)
[2022-05-18] MEDS: ACCU-CHEK COMFORT CURVE STRIP VI SCH ×4 (05:25→21:12)
[2022-05-18] MEDS: methylPREDNISolone SOD SUCC 40 MG/ML VL IV SCH ×2 (05:25→21:07)
[2022-05-18 05:40] LABS: Calcium 8.5 mg/dL (8.5-10.1); Potassium 4.1 mmol/L (3.5-5.1)
[2022-05-18 05:42] LABS: BUN/Creatinine Ratio 34.6 (10.0-20.0)
[2022-05-18] MEDS: InsuLIN REG 1unit/0.01ml Soln (100units/ml) SC SCH ×4 (06:11→21:07)
[2022-05-18] MEDS: METOPROLOL SUCCINATE XL 50 MG TAB PO SCH (09:35)
[2022-05-18] MEDS: LISINOPRIL 5 MG TAB PO SCH (09:36)
[2022-05-18] MEDS ORDERED: LEVO500T31 PO (11:44)
[2022-05-18] MEDS ORDERED: PRED20TA2 PO (11:44)
[2022-05-18] MEDS: guaiFENesin-CODEINE Liq 5 ML UD PO PRN ×2 (15:46→20:42)
[2022-05-18] MEDS: levoFLOXacin 500MG 100 ML IV SCH (17:41)
[2022-05-19] MEDS: guaiFENesin-CODEINE Liq 5 ML UD PO PRN ×4 (00:51→16:23)
[2022-05-19 03:48] VITALS: BP 116/44
[2022-05-19 05:00] VITALS: BP 130/64
[2022-05-19] MEDS: IPRATROPIUM BROM 0.5 MG/2.5ML INH SOL NEB PRN ×2 (05:55→12:12)
[2022-05-19] MEDS: ACETYLCYSTEINE 10 %(100MG/ML) SOL 4ML NEB SCH ×3 (05:55→12:12)
[2022-05-19] MEDS: ALBUTEROL SULF 2.5 MG/0.5ML(0.5%) NEB SOLN NEB PRN ×2 (05:55→12:12)
[2022-05-19] MEDS: InsuLIN REG 1unit/0.01ml Soln (100units/ml) SC SCH ×3 (06:20→17:00)
[2022-05-19] MEDS: ACCU-CHEK COMFORT CURVE STRIP VI SCH ×3 (06:26→17:00)
[2022-05-19] MEDS: FUROSEMIDE 20 MG/2 ML VIAL IV SCH (06:28)
[2022-05-19 08:00] VITALS: BP 123/72
[2022-05-19 08:30] VITALS: BP 121/51
[2022-05-19] MEDS: methylPREDNISolone SOD SUCC 40 MG/ML VL IV SCH (10:19)
[2022-05-19] MEDS: LISINOPRIL 5 MG TAB PO SCH (10:20)
[2022-05-19] MEDS: METOPROLOL SUCCINATE XL 50 MG TAB PO SCH (10:20)
[2022-05-19 12:30] VITALS: BP 125/72
[2022-05-19 16:00] VITALS: BP 111/48
[2022-05-19] MEDS: levoFLOXacin 500MG 100 ML IV SCH (17:00)
[2022-05-19] MEDS ORDERED: ROSUVASTATIN CALCIUM 10 MG PO SCH (22:00)
[2022-05-20] MEDS ORDERED: METHOTREXATE 2.5 MG TAB PO SCH (10:00)
== END 2022-05-19 17:30 | disposition home or self-care (01) | DRG 193 ==
LOC: ER 02:14 → EDBD 02:14 → TELE 08:55 → TELE-EAST 05-16 10:50
PROVIDERS: ADMIT Nurse Practitioner Family; ATTEND Internal Medicine
DX: J15.9 Unspecified bacterial pneumonia (principal); J96.01 Acute respiratory failure with hypoxia; J45.902 Unspecified asthma with status asthmaticus; Z20.822 Contact with and (suspected) exposure to COVID-19; D64.9 Anemia, unspecified; E11.65 Type 2 diabetes mellitus with hyperglycemia; E78.5 Hyperlipidemia, unspecified
CPT/HCPCS: 36415; 36600; 71045; 71275; 80048; 80053; 81001; 82805; 82962; 83036; 83735; 83880; 84443; 84484; 85025; 85379; 85610; 85730; 87086; 87426; 93005; 93306; 94640; 96372; 96374; G0378; J1815; J1956